=== PATIENT | male | born 1955 | race Caucasian/White ===

== ENCOUNTER 2016-04-10 11:02 | Emergency (ER) | payer OTHER ==
[~2016-04-10] VITALS: Ht 172.7 cm; Wt 98.7 kg
[~2016-04-10 11:02] MED LIST: BACTRIM,SEPT1 TABLET PO; ENDOCET 5-3251 EACH PO; FLEXERIL10 MG PO; FLOMAX0.4 MG PO; IBUPROFEN800 MG PO; KEFLEX500 MG PO; NAPROXEN500 MG PO; PERCOCET 5/31 TABLET PO; ULTRAM50 MG PO; ZOFRAN ODT8 MG PO
[2016-04-10 12:24] LABS: HEMATOCRIT 35.8 % (38.0-50.0); MCH 29.3 PG (29.0-34.0); MCHC 33.2 G/DL (30.0-36.0); MCV 88.2 FL (86-99); MEAN PLAT.VOLUME 9.2 uM^3 (9.0-12.4); PLATELET COUNT 203 K/uL (156-360); RBC DIS.WIDTH-CV 14.3 % (11.8-14.6); RBC DIS.WIDTH-SD 44.7 % (39-53); RED BLOOD COUNT 4.06 M/uL (4.00-5.50); WHITE BLOOD COUNT 9.9 K/uL (4.1-10.2)
[2016-04-10 12:35] LABS: CHLORIDE 104 mEq/L (99-109); INTER. NORMALIZED RATIO 1.1; PROTHROMBIN TIME 10.8 (9.2-11.2); PTT 25.6 (25-32); SODIUM 140 mEq/L (136-147)
[2016-04-10 12:38] LABS: GLUCOSE 92 mg/dL (70-99)
[2016-04-10 12:39] LABS: ANION GAP 9 MEQ/L (2-14); TOTAL BILIRUBIN 0.6 mg/dL (0.0-1.0)
[2016-04-10 12:41] LABS: ALKALINE PHOSPHATASE 90 IU/L (3-129); GFR ESTIMATE (CALCULATED) > 59 mL/min/
[2016-04-10 12:42] LABS: UREA NITROGEN (BUN) 17 mg/dL (9-23)
[2016-04-10 12:43] LABS: DIRECT BILIRUBIN 0.2 mg/dL (0.0-0.3)
[2016-04-10 12:45] LABS: LIPASE 45 U/L (1.0-51.0)
[2016-04-10] MEDS ORDERED: PERCOCET 5/31 TABLET PO (13:33)
[2016-04-10 13:48] VITALS: BP 157/95
== END 2016-04-10 14:15 | disposition home or self-care (01) ==
LOC: EME 11:02
PROVIDERS: Emergency Medicine
DX: S27.0XXD Traumatic pneumothorax, subsequent encounter (principal); S22.41XD Multiple fractures of ribs, right side, subsequent encounter for fracture with routine healing; M79.604 Pain in right leg; S70.01XD Contusion of right hip, subsequent encounter; S30.1XXD Contusion of abdominal wall, subsequent encounter; W13.8XXD Fall from, out of or through other building or structure, subsequent encounter; N13.2 Hydronephrosis with renal and ureteral calculous obstruction
CPT/HCPCS: 71010; 71260; 74177; 80048; 80076; 83690; 85027; 85610; 85730; 99281; 99284; J3010; J7030

== ENCOUNTER 2016-06-08 14:36 | Emergency (ER) | payer OTHER ==
[~2016-06-08] VITALS: Ht 172.7 cm; Wt 101.3 kg
[2016-06-08] MEDS ORDERED: NAPROSYN500 MG PO (15:18)
[2016-06-08 15:38] VITALS: BP 142/86
== END 2016-06-08 15:38 | disposition home or self-care (01) ==
LOC: EME 14:36
PROC: 3E0234Z Introduction of Serum, Toxoid and Vaccine into Muscle, Percutaneous Approach (ICD-10-PCS; principal; 2016-06-08)
DX: Z23 Encounter for immunization (principal); S60.412A Abrasion of right middle finger, initial encounter; W45.8XXA Other foreign body or object entering through skin, initial encounter; Y92.512 Supermarket, store or market as the place of occurrence of the external cause

== ENCOUNTER 2017-01-26 11:11 | Emergency (ER) | payer OTHER ==
[~2017-01-26] VITALS: Ht 172.7 cm; Wt 102.2 kg
[~2017-01-26 11:11] MED LIST changes: +NAPROSYN500 MG PO
[2017-01-26 12:12] LABS: HEMATOCRIT 39.5 % (38.0-50.0); HEMOGLOBIN 13.2 G/DL (12.5-16.6); MCH 29.1 PG (29.0-34.0); MCHC 33.4 G/DL (30.0-36.0); MCV 87.2 FL (86-99); PLATELET COUNT 205 K/uL (156-360); RBC DIS.WIDTH-CV 13.3 % (11.8-14.6); RBC DIS.WIDTH-SD 42.5 % (39-53); RED BLOOD COUNT 4.53 M/uL (4.00-5.50); WHITE BLOOD COUNT 5.9 K/uL (4.1-10.2)
[2017-01-26 12:22] LABS: CHLORIDE 105 mEq/L (99-109); POTASSIUM 4.1 mEq/L (3.7-5.4); SODIUM 140 mEq/L (136-147)
[2017-01-26 12:23] LABS: GLUCOSE 92 mg/dL (70-99)
[2017-01-26 12:27] LABS: CREATININE 0.9 mg/dL (0.6-1.3); GFR ESTIMATE (CALCULATED) > 59 mL/min/ (58.99-99999)
[2017-01-26 12:28] LABS: UREA NITROGEN (BUN) 15 mg/dL (9-23)
[2017-01-26 13:48] LABS: TROP-I INTERPRETATION NEGATIVE; TROPONIN-I < 0.01 ng/mL (0.0-0.30)
[2017-01-26] MEDS ORDERED: ANTIVERT25 MG PO (15:06)
[2017-01-26 15:11] VITALS: BP 142/96
== END 2017-01-26 15:12 | disposition home or self-care (01) ==
LOC: EME 11:11
DX: R42 Dizziness and giddiness (principal)
CPT/HCPCS: 70450; 71020; 80048; 84484; 85027; 93005; 99281; 99283

== ENCOUNTER 2017-03-18 17:24 | Observation (INO) | payer OTHER ==
[~2017-03-18] VITALS: Ht 172.7 cm; Wt 105.6 kg
[~2017-03-18 17:24] MED LIST changes: +ANTIVERT25 MG PO
[2017-03-18 21:09] LABS: HEMATOCRIT 38.5 % (38.0-50.0); HEMOGLOBIN 13.1 G/DL (12.5-16.6); MCH 29.6 PG (29.0-34.0); MCV 86.9 FL (86-99); PLATELET COUNT 202 K/uL (156-360); RBC DIS.WIDTH-CV 13.5 % (11.8-14.6); RBC DIS.WIDTH-SD 42.5 % (39-53); RED BLOOD COUNT 4.43 M/uL (4.00-5.50); WHITE BLOOD COUNT 6.5 K/uL (4.1-10.2)
[2017-03-18 21:18] LABS: CHLORIDE 104 mEq/L (99-109); POTASSIUM 4.1 mEq/L (3.7-5.4); SODIUM 141 mEq/L (136-147)
[2017-03-18 21:19] LABS: GLUCOSE 94 mg/dL (70-99)
[2017-03-18 21:23] LABS: CREATININE 0.9 mg/dL (0.6-1.3); GFR ESTIMATE (CALCULATED) > 59 mL/min/ (58.99-99999)
[2017-03-18 21:24] LABS: UREA NITROGEN (BUN) 20 mg/dL (9-23)
[2017-03-18 21:31] LABS: TROP-I INTERPRETATION NEGATIVE; TROPONIN-I 0.01 ng/mL (0.0-0.30)
[2017-03-18] MEDS ORDERED: ANTIVERT25 MG PO (23:47)
[2017-03-18] MEDS ORDERED: FLUTICASONE PRO16 GM BOTH NARES (23:48)
[2017-03-18] MEDS ORDERED: TYLENOL EXTRA500 MG PO (23:49)
[2017-03-18] MEDS ORDERED: VITAMIN E1000 UNI1 PO (23:49)
[2017-03-19 01:59] LABS: TROP-I INTERPRETATION NEGATIVE; TROPONIN-I < 0.01 ng/mL (0.0-0.30)
[2017-03-19 02:17] VITALS: BP 121/61
[2017-03-19 06:30] LABS: TROP-I INTERPRETATION NEGATIVE; TROPONIN-I 0.01 ng/mL (0.0-0.30)
[2017-03-19 06:32] LABS: PTT 27.4 SEC (25-37)
[2017-03-19 06:35] LABS: HDL CHOLESTEROL 45 MG/DL (Desirable>=40); LDL CHOLESTEROL 133 mg/dL (Desirable<100); NON-HDL CHOLESTEROL 149 mg/dL (Desirable<160); TOTAL CHOLESTEROL 194 mg/dL (Desirable<200); TRIGLYCERIDES 80 MG/DL (Normal: <150)
[2017-03-19 07:48] VITALS: BP 133/68
[2017-03-19 08:29] LABS: THYROTROPIN (TSH) 5.4 MIU/L (0.4-5.5)
[2017-03-19 12:05] VITALS: BP 141/67
[2017-03-19 19:10] VITALS: BP 120/66
[2017-03-19 23:40] VITALS: BP 138/72
[2017-03-20 03:41] VITALS: BP 164/80
[2017-03-20 06:16] LABS: BASOPHIL (%) 0.7 % (0-1); BASOPHIL COUNT 0.1 K/uL (0-0.1); EOSINOPHIL (%) 5.7 % (0-5); EOSINOPHIL COUNT 0.4 K/uL (0-0.3); HEMATOCRIT 40.6 % (38.0-50.0); HEMOGLOBIN 13.5 G/DL (12.5-16.6); IMMATURE GRANULOCYTE (%) 0.3 % (0.0-0.7); LYMPHOCYTE (%) 23.7 % (15-42); LYMPHOCYTE COUNT 1.7 K/uL (1.0-2.8); MCH 29.2 PG (29.0-34.0); MCHC 33.3 G/DL (30.0-36.0); MCV 87.7 FL (86-99); MONOCYTE (%) 9.3 % (3-12); MONOCYTE COUNT 0.7 K/uL (0-0.8); NEUTROPHIL (%) 60.3 % (45-76); NEUTROPHIL COUNT 4.2 K/uL (1.8-6.4); PLATELET COUNT 196 K/uL (156-360); RBC DIS.WIDTH-CV 13.5 % (11.8-14.6); RBC DIS.WIDTH-SD 42.9 % (39-53); RED BLOOD COUNT 4.63 M/uL (4.00-5.50)
[2017-03-20 06:42] LABS: CHLORIDE 104 MEQ/L (99-109); GFR ESTIMATE (CALCULATED) > 59 mL/min/ (58.99-99999); GLUCOSE 105 mg/dL (70-99); POTASSIUM 4.2 MEQ/L (3.7-5.4); SODIUM 140 MEQ/L (136-147); UREA NITROGEN (BUN) 17 mg/dL (9-23)
[2017-03-20 08:01] VITALS: BP 124/72
[2017-03-20] MEDS ORDERED: ZYRTEC10 M3 PO (10:55)
[2017-03-20] MEDS ORDERED: ANTIVERT25 MG PO (10:55)
[2017-03-20] MEDS ORDERED: FLUTICASONE PRO16 GM BOTH NARES (10:57)
[2017-03-20 11:20] VITALS: BP 139/78
== END 2017-03-20 11:40 | disposition home or self-care (01) ==
LOC: EME 17:24 → EDOF 23:42 → 5WEST 23:42 → ENRESERV 23:48 → 5WEST 03-19 02:07
PROVIDERS: Hospitalist; Internal Medicine; Nurse Practitioner Family
DX: R42 Dizziness and giddiness (principal); R00.1 Bradycardia, unspecified; Z86.19 Personal history of other infectious and parasitic diseases; I10 Essential (primary) hypertension; M79.89 Other specified soft tissue disorders; I08.0 Rheumatic disorders of both mitral and aortic valves
CPT/HCPCS: 70450; 70551; 71046; 80048; 80061; 82607; 84443; 84484; 85025; 85027; 85610; 85730; 93005; 93306; 93880; 93971; 99281; 99285; G0378